=== PATIENT | female | born 1970 | race Caucasian/White ===

== ENCOUNTER 2019-06-06 18:34 | Emergency (ER) | payer OTHER ==
[~2019-06-06] VITALS: Ht 157.5 cm; Wt 84.5 kg
[~2019-06-06 18:34] MED LIST: CYCL10TA7 PO; NAPR-985 PO
[2019-06-06 18:42] VITALS: Ht 157.5 cm; Wt 84.5 kg
--- NOTE | 2019-06-06 18:45 | EN ---
Date/Time of Note Date/Time of Note DATE: 06/06/19 TIME: 18:44 ER Progress Note KKG-81-wcb[age]-old female with upper back and thoracic pain after reaching 3 days ago. Further evaluation and medication appropriate in ED 2. NOA DEE MD Jun 06, 2019 18:45
--- NOTE | 2019-06-06 19:36 | ERD ---
ER Documentation Chief Complaint Chief Complaint LT NECK AND LT MIDDLE BACK PAIN S/P OVER STRETCHING X2 DAYS HPI 49-year-old female presents to the emergency department complaining of mid back pain after reaching overhead. She believes she strained a muscle. Her current pain is rated 10/10 severity. She took ibuprofen at home without significant relief. She denies any falls or loss of consciousness. She denies any other symptoms or injuries at this time. ROS All systems reviewed and are negative except as per history of present illness. Medications Home Meds Active Scripts Naproxen* (Naprosyn*) 500 Mg Tablet, 500 MG PO BID PRN for PAIN AND/OR INFLAMMATION, #30 TAB Prov:CHARITO SPIVEY PA-C 06/06/19 Cyclobenzaprine Hcl* (Cyclobenzaprine Hcl*) 10 Mg Tablet, 10 MG PO TID, #15 TAB Prov:CHARITO SPIVEY PA-C 06/06/19 Allergies Allergies: Coded Allergies: No Known Allergy (Unverified , 06/06/19) PMhx/Soc Medical and Surgical Hx: pt denies Medical Hx, pt denies Surgical Hx Hx Alcohol Use: No Hx Substance Use: No Hx Tobacco Use: No Smoking Status: Never smoker FmHx Family History: No diabetes Physical Exam Vitals Vital Signs Date Temp Pulse Resp B/P (MAP) Pulse Ox O2 O2 Flow FiO2 Time Delivery Rate 06/06/19 98.9 65 18 141/73 97 Room Air 21:00 (95) 06/06/19 99.8 92 18 176/77 100 18:42 (110) Physical Exam Const: No acute distress Head: Atraumatic Eyes: Normal Conjunctiva ENT: Normal External Ears, Nose and Mouth. Neck: Full range of motion. No meningismus. Resp: Clear to auscultation bilaterally Cardio: Regular rate and rhythm, no murmurs Skin: No petechiae or rashes Back: Tenderness palpation and muscle spasms palpated to the right mid back. No midline tenderness. Ext: No cyanosis, or edema Neur: Awake and alert Psych: Normal Mood and Affect Results 24 hrs Laboratory Tests Test 06/06/19 20:22 POC Beta HCG, Qualitative NEGATIVE Current Medications Medications Dose Sig/Natalie Start Time Status Last (Trade) Ordered Route PRN Stop Time Admin Dose Reason Admin Ketorolac 30 mg ONCE STAT 06/06/19 DC 06/06/19 Tromethamine IM 20:12 20:23 (Toradol) 06/06/19 20:13 10 mg ONCE ONCE 06/06/19 DC 06/06/19 Dexamethasone IM 20:30 20:23 (Decadron) 06/06/19 20:31 Procedures/MDM This is a 49-year-old female presenting to the emergency department with signs and symptoms most consistent with back strain. Patient was a ministered Toradol and Decadron in the department with significant impairment of her symptoms. Patient's musculoskeletal symptoms have stabilized while they have been ev aluated in the department and are appropriate for outpatient work up. No evidence of cauda equina, cord compression, infiltrative, or infectious etiology. No evidence of life-threatening pathology at time of discharge. Pt/family in agreement with discharge plan/diagnosis. Pt/family advised to return immediately with any new or worsening symptoms. Follow-up with primary care physician within the next 1-2 days. Patient's blood pressure was elevated (>120/80) but appears stable without evidence of hypertension emergency or urgency. The patient is to follow-up and pursue outpatient monitoring and therapy with their primary care physician within 1 week and return immediately if they have any new, worsening, or concerning symptoms. Disclaimer: Inadvertent spelling and grammatical errors are likely due to EHR/dictation software use and do not reflect on the overall quality of patient care. Also, please note that the electronic time recorded on this note does not necessarily reflect the actual time of the patient encounter. Departure Diagnosis: Primary Impression: Strain of mid-back Encounter type: initial encounter Qualified Codes: S29.012A - Strain of mu scle and tendon of back wall of thorax, initial encounter Condition: Fair Additional Instructions: Follow up with your PCP within the next 1-3 days for a repeat evaluation. If you require a referral to a specialist, your Primary Care Provider may be able to provide this for you. In most patient cases, a referral is not required. If you have further questions regarding this matter, please ask your Primary Care Provider. Return the the emergency department immediately if symptoms worsen or change. If you have any questions regarding medications, ask your pharmacist or us before you leave. If any adverse reactions, occur while taking your medications, discontinue the treatment and return to the emergency department immediately. If any new or worsening symptoms, uncontrolled fevers, or other unexplained symptoms occur, return to the emergency department immediately. Take your medications as directed, and complete the entire course of treatment. CHARITO SPIVEY PA-C Jun 06, 2019 19:36
[2019-06-06] MEDS ORDERED: KETOROLAC 30 MG INJ IM STA (20:12)
[2019-06-06] MEDS ORDERED: DEXAMETHASONE 10 MG/ML 1 ML INJ IM ONE (20:30)
[2019-06-06 21:00] VITALS: BP 141/73; PULSE 65; RESP 18
== END 2019-06-06 21:01 | disposition home or self-care (01) ==
LOC: FTE 18:34
DX: S29.012A Strain of muscle and tendon of back wall of thorax, initial encounter (principal); X50.1XXA Overexertion from prolonged static or awkward postures, initial encounter; Y92.9 Unspecified place or not applicable
CPT/HCPCS: 81025; 96372; J1100; J1885; Z7502